=== PATIENT | male | born 1995 | race African-American/Black ===

== ENCOUNTER 2020-09-24 21:43 | Emergency (ER) | payer SELFPAY ==
[2020-09-24 21:53] VITALS: BP 159/91; PULSE 89; RESP 22; TEMP 37.1; O2SAT 100
--- NOTE | 2020-09-24 22:16 | ED_ITS ---
HPI - General Adult General Chief complaint: Toxicology Problem Stated complaint: NEEDS HELP WITH WITHDRAWAL SYMPTOMS Time Seen by Provider: 09/24/20 21:47 Source: patient Mode of arrival: Ambulatory Limitations: no limitations History of Present Illness HPI narrative: Patient is a 25-year-old male arrives for seeking help with opioid withdrawal. Patient states that he takes Percocet on a regular basis. His last dose was yesterday. He has been taking Percocet for many years. They are not prescribed to him. He purchase them from friends. He states he has tried to stop in the past and has stopped for many weeks/months at the beginning of the year but then started using again. He states he is feeling nauseous and in pain and somewhat shaky. Denies any other toxic ingestions. Your asking for help with the symptoms states that he wants to follow up tomorrow with a therapist to he has seen in the past. He has no scheduled follow-up currently. Related Data Previous Rx's Medication Instructions Recorded naloxone 4 mg INTRANASAL Q2M PRN #2 ea 09/24/20 Allergies Allergy/AdvReac Type Severity Reaction Status Date / Time No Known Drug Allergies Allergy Verified 09/24/20 21:55 Review of Systems Constitutional Constitutional: Denies fever(s), Denies headache(s) and Reports weakness ENT Ears, Nose, Mouth, and Throat: Denies headache(s) Cardiovascular Cardiovascular: Denies chest pain and Denies dyspnea Respiratory Respiratory: Denies dyspnea Gastrointestinal Gastrointestinal: Denies abdominal pain, Denies change in bowel habits, Reports nausea and Denies vomiting Genitourinary Genitourinary: Denies dysuria Genitourinary: Denies dysuria Integumentary/Breasts Skin/Breast: Denies lesions and Denies rash Neurologic Neurologic: Denies headache(s) and Reports weakness Comments: Generalized pain Psychiatric Psychiatric: Reports abnormal sleep pattern Hematologic/Lymphatic Hematologic/Lymphatic: Denies easy bleeding and Denies easy bruising Allergic/Immunologic Allergic/Immunologic: Denies urticaria Patient History Medical History Opioid abuse Substance Use Type: prescription drug Exam Initial Vital Signs Initial Vital Signs: Vital Signs Temperature 98.7 F 09/24/20 21:53 Pulse Rate 89 09/24/20 21:53 Respiratory Rate 22 09/24/20 21:53 Blood Pressure 159/91 H 09/24/20 21:53 Pulse Oximetry 100 09/24/20 21:53 Const General: cooperative and comfortable Limitations: mental status not altered HENMT Head: normal to inspection and normocephalic Resp Effort & Inspection: normal respiratory effort Cardio Rate: regular rate GI Inspection: non-distended Skin Lesions: no lesions Rashes: no rashes Neuro General: patient alert and patient awake Cognition: normal cognition Speech: speech normal Extrem General: capillary refill normal Psych Appearance: grossly normal and well kempt Course Orders Ordered: Discontinued Medications Buprenorphine/Naloxone (Buprenorphine/Naloxone 8mg/2mg 1 Tab) 1 tab SL NOW ONE Stop: 09/24/20 22:17 Last Admin: 09/24/20 22:20 Dose: 1 tab Documented by: ANYA Ondansetron HCl (Ondansetron 4 Mg/2 Ml Inj) 4 mg IV NOW ONE Stop: 09/24/20 22:04 Last Admin: 09/24/20 22:18 Dose: 4 mg Documented by: ANYA Vital Signs Vital signs: Vital Signs - 8 hr 09/24/20 21:53 09/24/20 23:42 Temperature 98.7 F Pulse Rate 89 76 Respiratory Rate 22 16 Blood Pressure 159/91 H 133/80 Pulse Oximetry 100 97 Medical Decision Making MDM Narrative Medical decision making narrative: Patient was given 8 mg of sublingual Suboxone here in the emergency department. He states that he felt much better afterwards. I did discuss the case with [facility]. They have an appointment available tomorrow afternoon. I was able to schedule the patient with a follow- up at [facility] in [place] at 4:30 in the afternoon tomorrow. Patient was given phone numbers and addresses for [facility]. He was very appreciative of this. He stated that he wanted to follow-up because he wanted to stop using the prescription drugs. He was also given a prescription for naloxone. Patient would like to go home. He was given return precautions. He expressed understanding and agreement. Discharge Plan Departure Patient Disposition: Home Clinical Impression: Acute opioid withdrawal Instructions: DI for Substance Use Disorder Activity Restrictions/Additional Instructions: I was able to secure you an appointment tomorrow with [facility]. This appointment time is for 430 in the afternoon. The phone number is . [place] is [address] in [place]. It is important that you follow-up with his appointment. Also recommend you fill the prescription for naloxone and have it with you. Return to the emergency department for any new or worsening symptoms Prescriptions: New naloxone 4 mg/actuation spray,non-aerosol 4 mg intranasal Q2M PRN (Reason: opioid overdose) Qty: 2 RF: 0
[2020-09-24] MEDS: ONDANSETRON 4 MG/2 ML INJ IV (22:18)
[2020-09-24] MEDS: BUPRENORPHINE/NALOXONE 8MG/2MG 1 TAB SL (22:20)
[2020-09-24 23:42] VITALS: BP 133/80; PULSE 76; RESP 16; O2SAT 97
== END 2020-09-24 23:00 | disposition home or self-care (01) ==
PROVIDERS: Emergency Provider Emergency Medicine
DX: F11.23 Opioid dependence with withdrawal (principal); R11.0 Nausea; R53.1 Weakness
CPT/HCPCS: 36415; 96374; 99283; 99284; J2405